=== PATIENT | female | born 1945 | race African-American/Black ===

== ENCOUNTER 2021-06-23 08:27 | Outpatient (REF) | payer MEDICARE, OTHER | END 2021-06-23 13:10 | disposition home or self-care (01) | LOC: MSOP 08:27 → INF 08:30 → MSOP 13:10 | PROVIDERS: ATTEND Internal Medicine | DX: M81.0 Age-related osteoporosis without current pathological fracture (principal) | CPT/HCPCS: J0897 ==

== ENCOUNTER 2023-03-19 22:02 | Observation (INO) | payer MEDICARE ==
[~2023-03-19] VITALS: Ht 180.3 cm; Wt 113.6 kg
[2023-03-19] VITALS (8 sets, daily range): BP systolic 186–216; BP diastolic 99–130
[2023-03-19 22:40] LABS: BASO% 0.2 % (0-3); EOS% 0.4 % (0-8); HEMATOCRIT 32.2 % (37.0-47.0); HEMOGLOBIN 10.1 g/dl (12.0-16.0); IMMATURE GRANULOCYTES 0.2 % (0.0-5.0); LYMPH% 16.5 % (15-41); MEAN CORPUSCULAR HGB 23.2 pG CALC (26.0-32.0); MEAN CORPUSCULAR HGB CONC 31.4 g/dL CAL (32.0-36.0); MONO% 7.7 % (2-13); NEUT# 4.22 thou/uL (2.00-7.15); RED BLOOD COUNT 4.35 mill/uL (4.20-5.60); RED CELL DISTRI WIDTH 15.8 % (11.5-15.5)
[2023-03-19 23:17] LABS: ALBUMIN 4.4 g/dL (3.2-5.0); ALKALINE PHOSPHATASE 74 u/l (38-126); ANION GAP 13 (6-22 (CALC)); BILIRUBIN, TOTAL 0.5 mg/dL (0.02-1.3); BUN 9 mg/dL (8-23); BUN/CREATININE RATIO 12 (12-20 (CALC)); CARBON DIOXIDE 25 mmol/l (22-30); CHLORIDE 109 mmol/l (95-108); CREATININE 0.7 mg/dL (0.5-1.0); GFR FOR AFR.AMER. > 60 ML/MIN (>=60 (CALC)); GFR OTHER RACES > 60 ML/MIN (>=60 (CALC)); POTASSIUM 3.8 mmol/l (3.5-5.1); SGOT/AST 27 u/l (9-36); SODIUM 143 mmol/l (137-146); TOTAL PROTEIN 7.8 g/dL (6.3-8.2)
[2023-03-19 23:27] LABS: URINE BILIRUBIN - DIPSTICK NEGATIVE (NEGATIVE); URINE BLOOD DIPSTICK NEGATIVE (NEGATIVE); URINE COLOR YELLOW; URINE GLUCOSE - DIPSTICK NEGATIVE (NEGATIVE); URINE KETONE NEGATIVE (NEGATIVE); URINE LEUK ESTERASE NEGATIVE (NEGATIVE); URINE PH 6.5 (4.5-8.0); URINE PROTEIN - DIPSTICK NEGATIVE (NEG-TRACE); URINE UROBILINOGEN - DIPSTICK 0.2 E.U./dL (0.2)
[2023-03-19 23:29] LABS: URINE NITRITE - DIPSTICK NEGATIVE (Negative)
[2023-03-20] VITALS (74 sets, daily range): BP systolic 98–184; BP diastolic 68–132
[2023-03-20] MEDS ORDERED: HYDROCHLOROT25 MG PO (02:15)
[2023-03-20] MEDS ORDERED: ELIQUIS5 MG PO (02:15)
[2023-03-20] MEDS ORDERED: LEVOTHYROXIN175 MC1 PO (02:16)
[2023-03-20] MEDS ORDERED: LIOTHYRONINE5 MCG PO (02:16)
[2023-03-20] MEDS ORDERED: ROSUVASTATIN CA20 MG PO (02:16)
[2023-03-20] MEDS ORDERED: METFORMIN HCL500 M1 PO (02:17)
[2023-03-20] MEDS ORDERED: METOPROLOL SUCC50 MG PO (02:17)
[2023-03-20] MEDS ORDERED: LINZESS72 MCG PO (02:17)
[2023-03-20] MEDS ORDERED: PANTOPRAZOLE SO40 M1 PO (02:17)
[2023-03-20] MEDS ORDERED: LISINOPRIL20 M1 PO (02:17)
[2023-03-21] VITALS (33 sets, daily range): BP systolic 68–169; BP diastolic 46–106
[2023-03-21 04:20] LABS: HEMOGLOBIN 10.9 g/dl (12.0-16.0); MEAN CELL VOLUME 73.3 fL CALC (80.0-100.0); MEAN CORPUSCULAR HGB 23.5 pG CALC (26.0-32.0); MEAN CORPUSCULAR HGB CONC 32.1 g/dL CAL (32.0-36.0); RED BLOOD COUNT 4.64 mill/uL (4.20-5.60); RED CELL DISTRI WIDTH 15.6 % (11.5-15.5)
[2023-03-21 04:44] LABS: ALBUMIN 4.3 g/dL (3.2-5.0); ALKALINE PHOSPHATASE 68 u/l (38-126); BILIRUBIN, TOTAL 0.7 mg/dL (0.02-1.3); BUN 13 mg/dL (8-23); BUN/CREATININE RATIO 18 (12-20 (CALC)); CHLORIDE 100 mmol/l (95-108); CREATININE 0.7 mg/dL (0.5-1.0); GFR FOR AFR.AMER. > 60 ML/MIN (>=60 (CALC)); GFR OTHER RACES > 60 ML/MIN (>=60 (CALC)); MAGNESIUM 1.5 mg/dL (1.6-2.3); POTASSIUM 3.3 mmol/l (3.5-5.1); SGOT/AST 26 u/l (9-36); SODIUM 138 mmol/l (137-146); TOTAL PROTEIN 7.9 g/dL (6.3-8.2)
[2023-03-21 04:45] LABS: ANION GAP 9 (6-22 (CALC)); CARBON DIOXIDE 32 mmol/l (22-30)
[2023-03-21] MEDS ORDERED: LASIX 20 MG TAB20 MG PO (10:48)
== END 2023-03-21 16:20 | disposition home or self-care (01) ==
LOC: ED 22:02 → MS2 03-20 02:10 → ICU 03-20 02:10
PROVIDERS: Emergency Medicine; Internal Medicine; ADMIT Internal Medicine; ATTEND Internal Medicine
PROC: 0T9B70Z Drainage of Bladder with Drainage Device, Via Natural or Artificial Opening (ICD-10-PCS; principal; 2023-03-20)
DX: I11.0 Hypertensive heart disease with heart failure (principal); I50.9 Heart failure, unspecified; I16.0 Hypertensive urgency; J96.01 Acute respiratory failure with hypoxia; E11.9 Type 2 diabetes mellitus without complications; I48.91 Unspecified atrial fibrillation; E03.9 Hypothyroidism, unspecified; F17.200 Nicotine dependence, unspecified, uncomplicated; Z95.0 Presence of cardiac pacemaker
CPT/HCPCS: J3475